=== PATIENT | female | born 1965 | race Hispanic/Latino ===

== ENCOUNTER 2018-05-11 11:27 | Observation (INO) | payer OTHER ==
[~2018-05-11] VITALS: Ht 149.9 cm; Wt 62.7 kg
[2018-05-11] MEDS ORDERED: IPRATROPIUM/ALBUTEROL SULFATE 3 ML SOLUTION IH ONE (12:00)
[2018-05-11 12:07] LABS: BASOPHILS % (AUTO) 1.2 % (0.0-5.0); EOSINOPHILS % (AUTO) 3.7 % (0.0-8.0); HEMATOCRIT 42.9 % (36-48); LYMPHOCYTES % (AUTO) 30.5 % (21.0-51.0); MEAN CORPUSCULAR HEMOGLOBIN 29.9 pg (27.0-33.0); MEAN CORPUSCULAR HGB CONC 33.7 g/dL (32.0-36.0); MEAN CORPUSCULAR VOLUME 88.8 fL (79-99); MONOCYTES % (AUTO) 6.9 % (3.0-13.0); NEUTROPHILS % (AUTO) 57.7 % (40.0-77.0); PLATELET COUNT (AUTO) 254 K/uL (130-400); RED BLOOD CELL COUNT(AUTO) 4.83 MIL/uL (4.00-5.50); RED CELL DISTRIBUTION WIDTH 14.8 % (11.0-15.5); WHITE BLOOD COUNT (AUTO) 7.5 K/uL (4.8-10.8)
[2018-05-11 12:21] LABS: CREATININE 0.7 mg/dL (0.5-1.5); POTASSIUM 3.9 mmol/L (3.5-5.1)
[2018-05-11 12:22] LABS: INR 0.97 (0.85-1.15); PARTIAL THROMBOPLASTIN TIME 28.6 SEC (26.3-35.5); PROTHROMBIN TIME 10.2 SEC (9.6-11.6)
[2018-05-11 12:26] LABS: ALBUMIN 3.9 g/dL (3.5-5.0); BILIRUBIN,TOTAL 0.4 mg/dL (0.2-1.0); TOTAL PROTEIN, SERUM 7.8 g/dL (6.0-8.3)
[2018-05-11] MEDS ORDERED: MORPHINE SULFATE 4 MG/1ML SYG IV PRN (15:15)
[2018-05-11] MEDS ORDERED: ONDANSETRON HCL 4 MG/2 ML VIAL IV PRN (15:15)
[2018-05-11] MEDS ORDERED: HYDRALAZINE HCL 20 MG/ML VIAL IV PRN (15:15)
[2018-05-11] MEDS ORDERED: ACETAMINOPHEN 325 MG TAB PO PRN (15:15)
[2018-05-11] MEDS ORDERED: LACTULOSE 20 GM/30 ML UDCUP PO PRN (15:15)
[2018-05-11 15:47] LABS: HEMOGLOBIN A1C 6.3 % (4.0-6.0)
[2018-05-11 16:29] LABS: CREATINE KINASE, TOTAL 100 U/L (21-232); MYOGLOBIN 27 ng/mL (10-92); TROPONIN I < 0.04 ng/mL (0.00-0.06)
--- NOTE | 2018-05-11 18:55 | NUR ---
PATIENT ADMITTED TO FLOOR, ORIENTATED TO CALL [facility], PHONE, AND FALL POLICY. PATIENT DENIES ANY COMPLAINTS OF PAIN OR DISCOMFORT AT PRESENT.
[2018-05-11 19:00] VITALS: BP 149/78
--- NOTE | 2018-05-11 19:30 | NUR ---
DR. CR OFFICE CALLED TO NOTIFY OF CONSULT. 1934-DR CR RETURNED CALL, APPRAISED OF CONSULT, ORDERS RECEIVED AND PLACED IN COMPUTER.
[2018-05-11] MEDS ORDERED: VENL-53 PO (19:38)
[2018-05-11] MEDS ORDERED: METO-408 PO (19:38)
[2018-05-11] MEDS: METOPROLOL TARTRATE 25 MG TAB PO SCH (20:20)
[2018-05-11] MEDS: NITROGLYCERIN 1GM/1 INCH PACKET TD SCH (22:51)
[2018-05-11 23:00] VITALS: BP 111/59
[2018-05-11 23:33] LABS: CREATINE KINASE, TOTAL 98 U/L (21-232); MYOGLOBIN 34 ng/mL (10-92); TROPONIN I < 0.04 ng/mL (0.00-0.06)
[2018-05-12 03:00] VITALS: BP 96/59
[2018-05-12] MEDS: NITROGLYCERIN 1GM/1 INCH PACKET TD SCH ×2 (06:32→14:00)
[2018-05-12 07:00] VITALS: BP 108/72
[2018-05-12] MEDS ORDERED: REGADENOSON 0.4 MG/5 ML PF SYG IVP SCH (07:30)
[2018-05-12 07:36] LABS: CREATINE KINASE, TOTAL 81 U/L (21-232); MYOGLOBIN 36 ng/mL (10-92); TROPONIN I < 0.04 ng/mL (0.00-0.06)
[2018-05-12 07:38] LABS: CHOLESTEROL 164 mg/dL (<200); HDL CHOLESTEROL 47 mg/dL (35-85); LDL DIRECT 113 mg/dL (0-99); TRIGLYCERIDES 38 mg/dL (30-200)
--- NOTE | 2018-05-12 08:33 | NUR ---
PATIENT IS TAK[place] [facility] [place].
[2018-05-12] MEDS ORDERED: ENOXAPARIN SODIUM 40 MG/0.4 ML SYRINGE SQ SCH (09:00)
[2018-05-12] MEDS ORDERED: PANTOPRAZOLE SODIUM 40 MG TABLET.DR PO SCH (09:00)
[2018-05-12] MEDS ORDERED: ASPIRIN 325 MG TABLET PO SCH (09:00)
[2018-05-12 11:00] VITALS: BP 149/83
[2018-05-12] MEDS: METOPROLOL TARTRATE 25 MG TAB PO SCH (14:00)
--- NOTE | 2018-05-12 18:13 | NUR ---
DISCHARGE INSTRUCTIONS/INFORMATION GIVEN TO PATIENT. NO NEW PRESCRIPTIONS. TEACH BACK METHOD USED TO EDUCATE PATIENT ON DIET, MEDICATIONS, WHEN TO CALL MD, AND S/S TO MONITOR. PIV REMOVED. TIP INTACT. TELE CAMILO REMOVED AND RETURNED. ALL BELONGINGS PACKED AND TAKEN HOME.
== END 2018-05-12 18:09 | disposition home or self-care (01) ==
LOC: EDH 11:27 → EDHIP 15:07 → 2DH 19:20
PROVIDERS: ADMIT Internal Medicine; ATTEND Internal Medicine
DX: R07.89 Other chest pain (principal); I10 Essential (primary) hypertension; H05.20 Unspecified exophthalmos; R73.03 Prediabetes; Z90.710 Acquired absence of both cervix and uterus
CPT/HCPCS: 36415 ×2; 78452; 80053; 80061; 82550 ×4; 83036; 83874 ×3; 84484 ×4; 85025; 85610; 85730; 93005; 93017; 93306; 94640; 96372; 99284; A9500 ×2; G0378 ×27; J1650; J2785; 96374

== ENCOUNTER 2020-12-07 16:43 | Emergency (ER) | payer OTHER ==
[~2020-12-07] VITALS: Ht 152.4 cm; Wt 66.7 kg
[~2020-12-07 16:43] MED LIST: METO-408 PO; VENL-53 PO
[2020-12-07 18:16] VITALS: BP 157/82
[2020-12-07] MEDS: CYCLOBENZAPRINE HCL 10 MG TABLET PO ONE (19:00)
[2020-12-07] MEDS: HYDROCODONE/ACETAMINOPHEN 10/325 MG TAB PO ONE (19:00)
[2020-12-07] MEDS ORDERED: CYCL10 PO (19:11)
[2020-12-07] MEDS ORDERED: ACET1TAB25 PO (19:11)
== END 2020-12-07 19:50 | disposition home or self-care (01) ==
LOC: EDH 16:43
DX: S22.42XA Multiple fractures of ribs, left side, initial encounter for closed fracture (principal); I10 Essential (primary) hypertension; Z79.899 Other long term (current) drug therapy; Z88.1 Allergy status to other antibiotic agents; V29.3XXA Motorcycle rider (driver) (passenger) injured in unspecified nontraffic accident, initial encounter; Y93.89 Activity, other specified; Y92.89 Other specified places as the place of occurrence of the external cause; Y99.8 Other external cause status
CPT/HCPCS: 71250